=== PATIENT | female | born 1995 | race Caucasian/White ===

== ENCOUNTER 2016-07-04 21:45 | Observation (INO) | payer OTHER ==
[2016-07-04] MEDS ORDERED: SODIUM CHLORIDE 0.9% 1,000 ML IV STA (22:49)
[2016-07-04] MEDS ORDERED: ACETAMINOPHEN TAB 500 MG TAB PO STA (22:49)
--- NOTE | 2016-07-04 23:02 | ED ---
Abdominal Pain HPI <Ender Valles - Last Filed: 07/05/16 01:08> - General Source: patient, RN notes reviewed Mode of arrival: ambulatory Limitations: no limitations <Bee Michel - Last Filed: 07/05/16 01:17> - General Chief Complaint: Abdominal Pain Stated Complaint: ABD/BACK PAIN Time Seen by Provider: 07/04/16 22:40 - History of Present Illness Initial Comments: 21-year-old female presents to the emergency room chief complaint abdominal pain in . Patient states she is about 5 and half weeks . Patient states she started to have lower abdominal cramping. Patient denies any changes in urination. Patient IV nausea vomiting. Patient states the pain radiates to the back. Patient states she is . Patient denies any cough cold runny nose with this. Patient states she was concerned due to her continued symptoms that she thought that she should be evaluated. Patient denies any recent fever, chills, shortness of breath, chest pain, back pain, nausea vomiting, numbness or tingling, dysuria or hematuria, constipation or diarrhea, headaches or visual changes, or any other current symptoms. (Bee Michel) - Related Data Home Medications Medication Instructions Recorded Confirmed No Known Home Medications [No 07/04/16 07/04/16 Known Home Medications] Allergies Allergy/AdvReac Type Severity Reaction Status Date / Time No Known Allergies Allergy Verified 07/04/16 22:55 Review of Systems ROS Other: All systems not noted in ROS Statement are negative. <Ender Valles - Last Filed: 07/05/16 01:08> ROS Other: All systems not noted in ROS Statement are negative. <Bee Michel - Last Filed: 07/05/16 01:17> ROS Statement: Those systems with pertinent positive or pertinent negative responses have been documented in the HPI. Past Medical History Past Medical History: No Reported History History of Any Multi-Drug Resistant Organisms: None Reported Past Surgical History: No Surgical Hx Reported Past Psychological History: No Psychological Hx Reported Smoking Status: Current every day smoker Past Alcohol Use History: None Reported Past Drug Use History: None Reported <Bee Michel - Last Filed: 07/05/16 01:17> General Exam <Ender Valles - Last Filed: 07/05/16 01:08> Limitations: no limitations External exam: Present: normal external exam Speculum exam: Present: vaginal discharge (White) By manual exam: Present: adnexal tenderness (Right sided) <Bee Michel - Last Filed: 07/05/16 01:17> - General Exam Comments Initial Comments: General: The patient is awake and alert, in no distress, and does not appear acutely ill. Eye: Pupils are equal, round and reactive to light, extra-ocular movements are intact; there is normal conjunctiva bilaterally. No signs of icterus. Ears, nose, mouth and throat: There are moist mucous membranes. Neck: The neck is supple, there is no tenderness. Cardiovascular: There is a regular rate and rhythm. No murmur, rub or gallop is appreciated. Respiratory: Lungs are clear to auscultation, respirations are non-labored, breath sounds are equal. No wheezes, stridor, rales, or rhonchi. Gastrointestinal: Soft, non-distended, non-tender abdomen without masses or organomegaly noted. There is no rebound or guarding present. No CVA tenderness. Bowel sounds are unremarkable. Back: There is no tenderness to palpation in the midline. There is no obvious deformity. No rashes noted. Musculoskeletal: Normal ROM, no tenderness, There is no pedal edema. There is no calf tenderness or swelling. Sensation intact. Pulses equal bilaterally 2+. Neurological: CN II-XII intact, There are no obvious motor or sensory deficits. Coordination appears grossly intact. Speech is normal. Skin: Skin is warm and dry and no rashes or lesions are noted. Psychiatric: Cooperative, appropriate mood & affect, normal judgment. (Bee Michel) Medical Decision Making - Lab Data Result diagrams: 07/04/16 23:00 07/04/16 23:00 <Ender Valles - Last Filed: 07/05/16 01:08> - Lab Data Result diagrams: 07/04/16 23:00 07/04/16 23:00 - Radiology Data Radiology results: report reviewed, image reviewed <Bee Michel - Last Filed: 07/05/16 01:17> - Medical Decision Making Patient reevaluated by myself, Dr. Valles. Patient resting comfortably in bed however does have mild to moderate tenderness right lower abdomen/pelvic region. Patient is G3 SD 1. Patient believes she is around 5 and half weeks . Last miss a period was March 25. Case discussed in detail with Dr. Eng who will admit for observation. She recommends keeping patient nothing by mouth. She does want repeat CBC and beta hCG in the morning. Patient updated. Patient and Dr. Eng are both aware of concern for possible ectopic . (Ender Valles) 21-year-old female presents emergency Department chief complaint abdominal pain in . at this time the case is discussed with Dr. Eng. We will admit the patient for reevaluation in the morning. Patient and agree with the plan. All questions have been answered. Velasquez asked us to hold the Rhogam at this time. (Bee Michel) - Lab Data Lab Results 07/04/16 07/04/16 07/04/16 Range/Units 23:00 23:00 23:00 WBC 15.4 H (3.8-10.6) k/uL RBC 3.86 (3.80-5.40) m/uL Hgb 11.4 (11.4-16.0) gm/dL Hct 33.5 L (34.0-46.0) % MCV 86.8 (80.0-100.0) fL MCH 29.7 (25.0-35.0) pg MCHC 34.2 (31.0-37.0) g/dL RDW 12.4 (11.5-15.5) % Plt Count 248 (150-450) k/uL Neutrophils % 85 % Lymphocytes % 10 % Monocytes % 3 % Eosinophils % 1 % Basophils % 0 % Neutrophils # 13.2 H (1.3-7.7) k/uL Lymphocytes # 1.5 (1.0-4.8) k/uL Monocytes # 0.5 (0-1.0) k/uL Eosinophils # 0.1 (0-0.7) k/uL Basophils # 0.0 (0-0.2) k/uL Sodium (137-145) mmol/L Potassium (3.5-5.1) mmol/L Chloride (98-107) mmol/L Carbon Dioxide (22-30) mmol/L Anion Gap mmol/L BUN (7-17) mg/dL Creatinine (0.52-1.04) mg/dL Est GFR (MDRD) Af Amer (>60 ml/min/1.73 sqM) Est GFR (MDRD) Non-Af (>60 ml/min/1.73 sqM) Glucose (74-99) mg/dL Calcium (8.4-10.2) mg/dL Total Bilirubin (0.2-1.3) mg/dL AST (14-36) U/L ALT (9-52) U/L Alkaline Phosphatase (38-126) U/L Total Protein (6.3-8.2) g/dL Albumin (3.5-5.0) g/dL HCG, Quant mIU/mL Urine Color Yellow Urine Appearance Cloudy H (Clear) Urine pH 5.5 (5.0-8.0) Ur Specific Le[place]y 1.031 (1.001-1.035) Urine Protein 1+ H (Negative) Urine Glucose (UA) Negative (Negative) Urine Ketones Trace H (Negative) Urine Blood Negative (Negative) Urine Nitrite Negative (Negative) Urine Bilirubin Negative (Negative) Urine Urobilinogen 2.0 (<2.0) mg/dL Ur Leukocyte Esterase Moderate H (Negative) Urine RBC 4 (0-5) /hpf Urine WBC 4 (0-5) /hpf Ur Squamous Epith Cells 16 H (0-4) /hpf Urine Mucus Moderate H (None) /hpf Urine HCG, Qual (Not Detectd) Trichomonas Ag (Rapid) (Negative) Blood Type A Negative Blood Type Recheck No Antibody Screen Cancelled 07/04/16 07/04/16 07/04/16 Range/Units 23:00 23:00 23:00 WBC (3.8-10.6) k/uL RBC (3.80-5.40) m/uL Hgb (11.4-16.0) gm/dL Hct (34.0-46.0) % MCV (80.0-100.0) fL MCH (25.0-35.0) pg MCHC (31.0-37.0) g/dL RDW (11.5-15.5) % Plt Count (150-450) k/uL Neutrophils % % Lymphocytes % % Monocytes % % Eosinophils % % Basophils % % Neutrophils # (1.3-7.7) k/uL Lymphocytes # (1.0-4.8) k/uL Monocytes # (0-1.0) k/uL Eosinophils # (0-0.7) k/uL Basophils # (0-0.2) k/uL Sodium 140 (137-145) mmol/L Potassium 3.7 (3.5-5.1) mmol/L Chloride 105 (98-107) mmol/L Carbon Dioxide 23 (22-30) mmol/L Anion Gap 12 mmol/L BUN 13 (7-17) mg/dL Creatinine 0.70 (0.52-1.04) mg/dL Est GFR (MDRD) Af Amer >60 (>60 ml/min/1.73 sqM) Est GFR (MDRD) Non-Af >60 (>60 ml/min/1.73 sqM) Glucose 103 H (74-99) mg/dL Calcium 8.8 (8.4-10.2) mg/dL Total Bilirubin 0.6 (0.2-1.3) mg/dL AST 14 (14-36) U/L ALT 26 (9-52) U/L Alkaline Phosphatase 42 (38-126) U/L Total Protein 7.0 (6.3-8.2) g/dL Albumin 4.1 (3.5-5.0) g/dL HCG, Quant 5720.1 mIU/mL Urine Color Urine Appearance (Clear) Urine pH (5.0-8.0) Ur Specific Le[place]y (1.001-1.035) Urine Protein (Negative) Urine Glucose (UA) (Negative) Urine Ketones (Negative) Urine Blood (Negative) Urine Nitrite (Negative) Urine Bilirubin (Negative) Urine Urobilinogen (<2.0) mg/dL Ur Leukocyte Esterase (Negative) Urine RBC (0-5) /hpf Urine WBC (0-5) /hpf Ur Squamous Epith Cells (0-4) /hpf Urine Mucus (None) /hpf Urine HCG, Qual Detected (Not Detectd) Trichomonas Ag (Rapid) (Negative) Blood Type Blood Type Recheck Antibody Screen 07/05/16 Range/Units 00:30 WBC (3.8-10.6) k/uL RBC (3.80-5.40) m/uL Hgb (11.4-16.0) gm/dL Hct (34.0-46.0) % MCV (80.0-100.0) fL MCH (25.0-35.0) pg MCHC (31.0-37.0) g/dL RDW (11.5-15.5) % Plt Count (150-450) k/uL Neutrophils % % Lymphocytes % % Monocytes % % Eosinophils % % Basophils % % Neutrophils # (1.3-7.7) k/uL Lymphocytes # (1.0-4.8) k/uL Monocytes # (0-1.0) k/uL Eosinophils # (0-0.7) k/uL Basophils # (0-0.2) k/uL Sodium (137-145) mmol/L Potassium (3.5-5.1) mmol/L Chloride (98-107) mmol/L Carbon Dioxide (22-30) mmol/L Anion Gap mmol/L BUN (7-17) mg/dL Creatinine (0.52-1.04) mg/dL Est GFR (MDRD) Af Amer (>60 ml/min/1.73 sqM) Est GFR (MDRD) Non-Af (>60 ml/min/1.73 sqM) Glucose (74-99) mg/dL Calcium (8.4-10.2) mg/dL Total Bilirubin (0.2-1.3) mg/dL AST (14-36) U/L ALT (9-52) U/L Alkaline Phosphatase (38-126) U/L Total Protein (6.3-8.2) g/dL Albumin (3.5-5.0) g/dL HCG, Quant mIU/mL Urine Color Urine Appearance (Clear) Urine pH (5.0-8.0) Ur Specific [place]y (1.001-1.035) Urine Protein (Negative) Urine Glucose (UA) (Negative) Urine Ketones (Negative) Urine Blood (Negative) Urine Nitrite (Negative) Urine Bilirubin (Negative) Urine Urobilinogen (<2.0) mg/dL Ur Leukocyte Esterase (Negative) Urine RBC (0-5) /hpf Urine WBC (0-5) /hpf Ur Squamous Epith Cells (0-4) /hpf Urine Mucus (None) /hpf Urine HCG, Qual (Not Detectd) Trichomonas Ag (Rapid) Negative (Negative) Blood Type Blood Type Recheck Antibody Screen Disposition <Ender Valles - Last Filed: 07/05/16 01:08> Time of Disposition: :17 Decision Date: 07/05/16 Decision Time: :17 <Bee Michel - Last Filed: 07/05/16 01:17> Clinical Impression: Pelvic pain affecting Disposition: ADMITTED IP TO THIS HOSP Condition: Stable
[2016-07-04 23:27] LABS: Basophils % (A) 0 %; CH 29.8; CHCM 34.5; Eosinophils # (A) 0.1 k/uL (0-0.7); Eosinophils % (A) 1 %; HCT 33.5 % (34.0-46.0); HDW 2.43; HGB 11.4 gm/dL (11.4-16.0); Luc % (Auto) 1; Lymphocytes # (A) 1.5 k/uL (1.0-4.8); Lymphocytes % (A) 10 %; MCH 29.7 pg (25.0-35.0); MCHC 34.2 g/dL (31.0-37.0); MCV 86.8 fL (80.0-100.0); Mean Platelet Volume 7.7; Monocytes # (A) 0.5 k/uL (0-1.0); Monocytes % (A) 3 %; Neutrophils # (A) 13.2 k/uL (1.3-7.7); Neutrophils % (A) 85 %; RBC 3.86 m/uL (3.80-5.40); RDW 12.4 % (11.5-15.5); WBC 15.4 k/uL (3.8-10.6); WBC (Perox) 16.46
[2016-07-04 23:31] LABS: Appearance,Urine Cloudy (Clear); Bilirubin,Urine Negative (Negative); Glucose,Urine (UA) Negative (Negative); Ketones,Urine Trace (Negative); Leukocyte Esterase,Urine Moderate (Negative); Mucus,Urine Moderate /hpf; Nitrite,Urine Negative (Negative); PH, Urine 5.5 (5.0-8.0); Particle Count 13083; Protein,Urine 1+ (Negative); RBC,Urine 4 /hpf (0-5); Specific Gravity,Urine 1.031 (1.001-1.035); Squamous Epithelial Cell,Urine 16 /hpf (0-4); UA Billing (MACRO vs. MICRO) MICRO; WBC,Urine 4 /hpf (0-5)
[2016-07-04 23:41] LABS: ALT 26 U/L (9-52); AST 14 U/L (14-36); Alkaline Phosphatase 42 U/L (38-126); Anion Gap 12 mmol/L; Blood Urea Nitrogen 13 mg/dL (7-17); Calcium 8.8 mg/dL (8.4-10.2); Carbon Dioxide 23 mmol/L (22-30); Chloride 105 mmol/L (98-107); Glucose 103 mg/dL (74-99); Non-African American GFR(MDRD) >60 (>60 ml/min/1.73 sqM); Potassium 3.7 mmol/L (3.5-5.1); Sodium 140 mmol/L (137-145); Total Bilirubin 0.6 mg/dL (0.2-1.3)
--- NOTE | 2016-07-05 00:32 | US ---
ULTRASOUND OB/ENDOVAG INDICATION: 21-year-old woman, LMP 05/26/16, presenting with abdominal and back pain, no vaginal bleeding. HCG value are not available at time of report. COMPARISON: None available. TECHNIQUE: Real-time sonographic evaluation of the female pelvis obtained using grayscale and color flow. Both transvaginal and transabdominal techniques were employed. FINDINGS: The uterus measures 8.2 x 4.1 x 6.1 cm. The endometrial echo complex measures 10 mm. No intrauterine is visualized. There is moderate free pelvic fluid in the cul-de-sac and in the bilateral adnexal regions. The right ovary is not visualized. There is heterogeneous echogenic appearance in the right adnexal region extending inferior to the uterus with internal vascularity extending over a distance of 7-8 cm. The left ovary is suboptimally evaluated. A possible left ovary is visualized measuring 3.2 x 2.0 x 2.7 cm. IMPRESSION: 1. Moderate free pelvic fluid without visible intrauterine . 2. Nonvisualized right ovary with heterogeneous appearance of the right adnexal region demonstrating internal vascularity. 3. In the setting of positive test, this represents a of unknown location. Given heterogeneous appearance of the right adnexal region and moderate free pelvic fluid, the possibility of right-sided ectopic is raised. Correlation with serial quantitative hCG is recommended. Close clinical and imaging follow-up and/or [employer] PROFESSIONAL evaluation is recommended as clinically indicated.
[2016-07-05] MEDS ORDERED: Rhogam IMMUNE GLOBULIN 1,500 UNIT/1 ML IM ONE ×2 (00:44→11:59)
[2016-07-05] MEDS ORDERED: ACETAMINOPHEN TAB 325 MG TAB PO PRN (01:17)
[2016-07-05] MEDS ORDERED: NALOXONE 0.4 MG/ML 1 ML VIAL IV PRN (01:17)
[2016-07-05] MEDS ORDERED: SODIUM CHLORIDE 0.9% 1,000 ML IV SCH (01:30)
[2016-07-05 07:44] LABS: Basophils % (A) 0 %; CH 29.5; CHCM 35.3; Eosinophils % (A) 1 %; HCT 24.8 % (34.0-46.0); HDW 2.47; Luc # (Auto) 0.15; Luc % (Auto) 2; Lymphocytes # (A) 1.9 k/uL (1.0-4.8); Lymphocytes % (A) 26 %; MCH 29.6 pg (25.0-35.0); MCHC 35.3 g/dL (31.0-37.0); Mean Platelet Volume 7.4; Monocytes # (A) 0.4 k/uL (0-1.0); Monocytes % (A) 5 %; Neutrophils # (A) 4.7 k/uL (1.3-7.7); Neutrophils % (A) 66 %; RBC 2.95 m/uL (3.80-5.40); RDW 12.7 % (11.5-15.5); WBC 7.1 k/uL (3.8-10.6); WBC (Perox) 7.07
--- NOTE | 2016-07-05 07:55 | P.HPOB ---
History of Present Illness H&P Date: 07/05/16 Chief Complaint: Pelvic pain, This is a 21-year-old female 3 para 1011 with a last menstrual period of 05/26/2016, who presents to the ER complaining of severe pelvic pain that began yesterday morning. She states when she got up to get ready for work she started having some severe lower abdominal pain. She did push through and did go to work. It did improve while she was at work and then when she got home later that evening she began having severe pain again. This pain did cause her to vomit and feel hot and cold at the same time. She has been having some mild nausea but this is been going on for about a week anyway. She just found out she was on July 01. Since she has been in the hospital her pain is significantly improved. She states this morning she is having almost no pain. She is not taking anything for pain other than her Tylenol in the emergency room. Her pelvic ultrasound showed a uterus measuring approximately 8 cm with endometrial thickness of 10 mm. Right adnexa was not well defined but there was some vascularity noted in the area and a fairly moderate to large fluid collection in the pelvis measuring up to 7.8 cm extending from both adnexal regions. Left ovary appeared essentially normal. Her beta hCG level was 5720. Her blood type is Rh-. Obstetrical history: . History of 1 termination of . One vaginal delivery at term with no complications. Gynecologic history: She does have a history of chlamydia treated approximately 1 year ago. She denies any history of PID. Social history: She is single but has a steady boyfriend. She currently works at [employer]. Review of Systems Gastrointestinal: Reports abdominal pain (Lower), Reports nausea, Reports vomiting (Did have vomiting 2 times yesterday once in the morning and once in the evening 1 her pain was the worst.) Genitourinary: Reports pelvic pain (Lower abdomen, almost completely resolved this morning), Reports Past Medical History Past Medical History: No Reported History Additional Past Medical History / Comment(s): cellulitis History of Any Multi-Drug Resistant Organisms: None Reported Past Surgical History: No Surgical Hx Reported Past Anesthesia/Blood Transfusion Reactions: No Reported Reaction Past Psychological History: No Psychological Hx Reported Smoking Status: Current every day smoker (5-6 cigarettes a day.) Past Alcohol Use History: None Reported Past Drug Use History: None Reported Medications and Allergies Home Medications Medication Instructions Recorded Confirmed Type No Known Home Medications [No 07/04/16 07/04/16 History Known Home Medications] Allergies Allergy/AdvReac Type Severity Reaction Status Date / Time No Known Allergies Allergy Verified 07/04/16 22:55 Exam Osteopathic Statement: *. No significant issues noted on an osteopathic structural exam other than those noted in the History and Physical/Consult. - Vital Signs Vital signs: Vital Signs Temp Pulse Pulse Resp BP BP Pulse Ox 07/05/16 02:26 98.2 F 103 H 16 106/55 99 07/05/16 02:04 98.7 F 79 18 100/53 99 Intake and Output 07/04/16 07/05/16 07/05/16 22:59 06:59 14:59 Intake Total 350 Balance 350 Intake: Intake, IV Titration 350 Amount Sodium Chloride 0.9% 1, 350 000 ml @ 100 mls/hr IV . Q10H MERVIN Rx#:[id number] Other: Voiding Method Toilet # Voids 1 HEENT: Within normal limits Heart: Regular rate and rhythm Lungs: Clear to auscultation bilaterally Abdomen: Soft, nontender Pelvic exam: Uterus is mid to anteverted position with minimal tenderness and no adnexal masses or tenderness noted. No vaginal bleeding is noted. Extremities: Negative Homans Results Result Diagrams: 07/04/16 23:00 07/04/16 23:00 Assessment and Plan (1) Pelvic pain affecting Status: Acute Plan: Will admit for observation. Will await serial CBC and beta hCG levels. We'll repeat ultrasound again this morning due to the resolution of her pain. Will allow to eat at this time. We'll continue close observation.
[2016-07-05 07:58] LABS: HGB 8.7 gm/dL (11.4-16.0)
--- NOTE | 2016-07-05 09:25 | US ---
EXAMINATION TYPE: US OB <=14 wks transvag DATE OF EXAM: 07/05/2016 8:59 AM COMPARISON: Previous study dated 07/04/2016. CLINICAL HISTORY: Pelvic pain, possible ectopic, follow-up scan. patient was scanned last night and h as a large complex collection right adnexal region, possible ectopic . EXAM PERFORMED: Transabdominal EXAM MEASUREMENTS:. GESTATIONAL AGE / DATING Physician Established: not established Dates by LMP: (5 weeks/5 days) EDC: 03/02/2017 Dates by First Scan: no IUP seen Dates by Current Scan for: no IUP seen MATERNAL ANATOMY Uterus: 9.8 x 5.4 x 7.3 cm Right Ovary: no identified Left Ovary: 3.0 x 2.1 x 2.6 cm Post CDS / Adnexa: large complex collection right adnexal region with surrounding free fluid with tulio ris, collection measures 8.9 x 5.5 x 8.1 cm and has minimal blood flow. Presence of free fluid: surrounding adnexal mass and extending into left adnexal and cul de sac. GESTATION / SURVEY Date of LMP: 05/26/2016 Beta HcG (if available): 5800 last night patient's pain from last night has completely subsided. No IUP seen, endo measures 1.2 cm. Large comp tyrone mass with surrounding free fluid. Cannot rule out ectopic at this time. IMPRESSION: 1. NO INTRAUTERINE GESTATION IS IDENTIFIED. 2. LARGE COMPLEX MASS ADJACENT TO THE RIGHT ADNEXA. 3. FREE FLUID WITHIN THE PELVIS. 4. ALTHOUGH THIS MAY REPRESENT A OF UNKNOWN LOCATION, AN EXTRAUTERINE MOLAR WOULD ALSO HAVE TO BE CONSIDERED. SERIAL BETA HCGS AND SHORT-TERM FOLLOW-UP HIGHLY SUGGESTED.
[2016-07-05 09:48] VITALS: BP 95/56; PULSE 79; RESP 14; TEMP 98.9
--- NOTE | 2016-07-05 12:10 | P.PN ---
Progress Note - Text Patient is seen and examined again. She states she is still having no pain. She has normal appetite and has eaten her breakfast with no difficulty. Her hemoglobin did drop from 11.4 down to 8.7 from last night and this morning. Her ultrasound this morning still showed a large complex area within the right adnexa with fluid surrounding it. The whole area measured approximately 8.9 x 8.1 cm with fluid extending into the cul-de-sac and the left side also. There is minimal blood flow to this area. Uterine lining is now 1.2 cm which is slightly thicker than it was yesterday. Patient was counseled extensively on the fact that this still could be an ectopic even though her pain has subsided. She does state that she has a history of anemia and was anemic with her last . I did offer to observe her longer in the hospital and repeat blood work again in the morning, however she is anxious to go home. I have advised her that it would like to repeat her blood work with a CBC and beta hCG level in 2 days on . I will then see her in the office on Monday. However she is advised that if she starts having any increased pain, and dizziness or lightheadedness, or any other symptoms, she should call the office immediately or go right to the emergency room. She is still aware that this could be an ectopic and she does understand the risks of this.
== END 2016-07-05 14:40 | disposition home or self-care (01) ==
LOC: EC 21:45 → 3SUR 07-05 01:17
PROVIDERS: ADMIT Obstetrics & Gynecology; ATTEND Obstetrics & Gynecology
DX: R10.2 Pelvic and perineal pain (principal); F17.210 Nicotine dependence, cigarettes, uncomplicated; Z32.01 Encounter for pregnancy test, result positive
CPT/HCPCS: 96360 ×2; 96361 ×2; 99285 ×2; 36415; 86900; 86901; 80053; 87591; 87491; 85025 ×2; 86850; 81001; 81025; 84702; 87808; 87070; 87086; 76801 ×2; 76817 ×2; G0378; J2791; 87205

== ENCOUNTER → 2016-07-07 | Outpatient (CLI) | payer OTHER ==
[2016-07-07 11:31] LABS: CH 29.2; CHCM 33.5; HCT 26.3 % (34.0-46.0); HDW 2.51; HGB 9.1 gm/dL (11.4-16.0); MCH 30.5 pg (25.0-35.0); MCHC 34.8 g/dL (31.0-37.0); MCV 87.6 fL (80.0-100.0); Mean Platelet Volume 7.4; RDW 12.6 % (11.5-15.5)
== END | disposition home or self-care (01) ==
LOC: LABWHC1 10:33
PROVIDERS: ATTEND Obstetrics & Gynecology
DX: O26.899 Other specified pregnancy related conditions, unspecified trimester (principal); Z3A.00 Weeks of gestation of pregnancy not specified
CPT/HCPCS: 36415; 84702; 85027

== ENCOUNTER → 2016-07-15 | Outpatient (CLI) | payer OTHER ==
[2016-07-15 10:23] LABS: CH 29.5; HCT 28.2 % (34.0-46.0); HDW 3.05; Hypochromasia Slight; MCH 28.7 pg (25.0-35.0); MCHC 31.9 g/dL (31.0-37.0); MCV 90.1 fL (80.0-100.0); Mean Platelet Volume 6.8; RBC 3.13 m/uL (3.80-5.40); RDW 13.7 % (11.5-15.5); WBC 7.8 k/uL (3.8-10.6)
== END | disposition home or self-care (01) ==
LOC: LABWHC1 09:26
PROVIDERS: ATTEND Obstetrics & Gynecology
DX: O00.10 Tubal pregnancy without intrauterine pregnancy (principal)
CPT/HCPCS: 36415; 84702; 85027

== ENCOUNTER → 2016-08-22 | Outpatient (CLI) | payer OTHER ==
--- NOTE | 2016-08-22 13:42 | XR ---
EXAMINATION TYPE: XR spine complete AP and Lat DATE OF EXAM ORDERED: 08/22/2016 1:03 PM HISTORY: R52 pain. COMPARISON: Previous scoliosis survey dated 12/27/2005. FINDINGS: Lawanda projects over the tongue. There is a slight reversal of the normal cervical lordosis. Vertebral body height and alignment are m aintained. Atlantoaxial relationships are normal. There is no spondylolysis or spondylolisthesis. The re is no significant degenerative disc disease. The pedicles are intact. There is a mild dextroscolio sis in the lumbar region. IMPRESSION: 1. MILD LUMBAR DEXTROSCOLIOSIS. 2. NO SIGNIFICANT DEGENERATIVE CHANGE.
== END | disposition home or self-care (01) ==
LOC: RADXRMAIN 12:36
PROVIDERS: ATTEND Internal Medicine
DX: M41.86 Other forms of scoliosis, lumbar region (principal); R52 Pain, unspecified
CPT/HCPCS: 72082

== ENCOUNTER → 2018-01-02 | Outpatient (CLI) | payer OTHER | END | disposition home or self-care (01) | LOC: LABWHC1 13:23 | PROVIDERS: ATTEND Obstetrics & Gynecology | DX: Z34.81 Encounter for supervision of other normal pregnancy, first trimester (principal); Z3A.00 Weeks of gestation of pregnancy not specified | CPT/HCPCS: 36415; 84702 ==

== ENCOUNTER → 2018-01-04 | Outpatient (CLI) | payer OTHER | END | disposition home or self-care (01) | LOC: LABWHC1 07:54 | PROVIDERS: ATTEND Obstetrics & Gynecology | DX: Z34.81 Encounter for supervision of other normal pregnancy, first trimester (principal) | CPT/HCPCS: 36415; 84702 ==

== ENCOUNTER → 2018-01-05 | Outpatient (CLI) | payer OTHER | END | disposition home or self-care (01) | LOC: LABWHC1 14:32 | PROVIDERS: ATTEND Obstetrics & Gynecology | DX: Z34.80 Encounter for supervision of other normal pregnancy, unspecified trimester (principal) | CPT/HCPCS: 36415; 84702; 86850; 86900; 86901 ==

== ENCOUNTER → 2018-01-08 | Outpatient (CLI) | payer OTHER | LOC: LABWHC1 13:12 | PROVIDERS: ATTEND Obstetrics & Gynecology | DX: Z34.80 Encounter for supervision of other normal pregnancy, unspecified trimester (principal) | CPT/HCPCS: 36415; 84702 ==

== ENCOUNTER → 2018-01-09 | Outpatient (CLI) | payer OTHER ==
--- NOTE | 2018-01-10 07:30 | US ---
EXAMINATION TYPE: Transabdominal land TV for better endometrium assessment DATE OF EXAM: 07/04/17 COMPARISON: NONE CLINICAL HISTORY: R68.89 Other general symptoms and signs. Bleeding off and on 2 weeks EXAM PERFORMED: Transvaginal (TV) and Transabdominal (TA) EXAM MEASUREMENTS: GESTATIONAL AGE / DATING Physician Established: not established Dates by LMP: 11/15/2017 (7 weeks/6 days) EDC: 08/22/2018 Dates by First Scan: No previous this is first scan EDC: Dates by Current Scan : no yolk sac seen or pole MATERNAL ANATOMY Uterus: 9.6 x 4.7 x 4.0 cm Right Ovary: 3.3 x 1.8 x 2.7 cm Left Ovary: 2.2 x 1.5 x 2.6 cm Post CDS / Adnexa: wnl Presence of free fluid: yes cul de sac 2.8 cm GESTATION / SURVEY nabothian cyst cervical vs cystic debris 1.1 cm upper endometrium area 1.0 x 0.7 x 0.7 cm irregular fluid collection Date of LMP: 11/15/2017 Beta HcG (if available): 3267 done 01/08/2018 IMPRESSION: There is a very small irregularly marginated abnormal appearing intraendometrial fluid collection con cerning for pseudosac of ectopic or evolving spontaneous . Short-term serum beta hC G follow-up to establish trend and repeat pelvic ultrasound in 5 days is recommended as early intraut erine remains a less likely possibility.
== END | disposition home or self-care (01) ==
LOC: RADUSWWP 16:13
PROVIDERS: ATTEND Obstetrics & Gynecology
DX: O02.81 Inappropriate change in quantitative human chorionic gonadotropin (hCG) in early pregnancy (principal); Z3A.01 Less than 8 weeks gestation of pregnancy
CPT/HCPCS: 76801; 76817

== ENCOUNTER 2018-01-10 06:24 | Emergency (ER) | payer OTHER ==
[2018-01-10 06:32] VITALS: RESP 18
[2018-01-10] MEDS ORDERED: SODIUM CHLORIDE 0.9% 1,000 ML IV ONE (06:54)
[2018-01-10] MEDS ORDERED: ONDANSETRON 4 MG/2 ML VIAL IVP STA (06:54)
[2018-01-10 06:59] LABS: Basophils % (A) 1 %; Eosinophils # (A) 0.2 k/uL (0-0.7); Eosinophils % (A) 3 %; HCT 41.2 % (34.0-46.0); HGB 13.8 gm/dL (11.4-16.0); Lymphocytes # (A) 2.3 k/uL (1.0-4.8); Lymphocytes % (A) 28 %; MCH 28.7 pg (25.0-35.0); MCHC 33.4 g/dL (31.0-37.0); Mean Platelet Volume 6.8; Monocytes # (A) 0.3 k/uL (0-1.0); Monocytes % (A) 4 %; Neutrophils # (A) 5.1 k/uL (1.3-7.7); Neutrophils % (A) 63 %; Platelet Count 226 k/uL (150-450); RBC 4.79 m/uL (3.80-5.40); RDW 13.1 % (11.5-15.5); WBC 8.1 k/uL (3.8-10.6)
[2018-01-10 07:02] LABS: Appearance,Urine Clear (Clear); Bilirubin,Urine Negative (Negative); Blood,Urine Moderate (Negative); Color,Urine Yellow; Glucose,Urine (UA) Negative (Negative); Ketones,Urine Negative (Negative); Leukocyte Esterase,Urine Trace (Negative); Mucus,Urine Rare /hpf; Nitrite,Urine Negative (Negative); Protein,Urine Negative (Negative); RBC,Urine 1 /hpf (0-5); Squamous Epithelial Cell,Urine 2 /hpf (0-4); Urobilinogen,Urine <2.0 mg/dL (<2.0); WBC,Urine 3 /hpf (0-5)
[2018-01-10] MEDS ORDERED: MORPHINE SULFATE/PF 10MG/10ML VL IVP STA (07:02)
[2018-01-10] MEDS ORDERED: MORPHINE SULFATE 4 MG/ML SYRINGE IVP STA (07:02)
[2018-01-10] MEDS: MORPHINE SULFATE 4 MG/ML SYRINGE IM STA ×2 (07:07→07:09)
--- NOTE | 2018-01-10 07:10 | ED ---
General Adult HPI - General Source: patient Mode of arrival: wheelchair Limitations: no limitations <Marie Roth - Last Filed: 01/10/18 07:40> <Smooth Young - Last Filed: 01/10/18 09:23> - General Chief complaint: Back Pain/Injury Stated complaint: BACK PAIN <20 WKS Time Seen by Provider: 01/10/18 06:40 - History of Present Illness Initial comments: Suzy is a with a history of one elective termination age of 15, a subsequent right-sided ectopic requiring surgical intervention, 1 live and she is currently last menstrual period was mid November. She has been experiencing some mild dark vaginal bleeding for approximately one week and has been following with her OB. Her beta hCG was not increasing as expected and 18 ultrasound was ordered yesterday evening. Patient had a completed but has not gotten any results. Patient reports she woke suddenly this morning with a stabbing left lower quadrant suprapubic abdominal pain. Patient reports this pain is very similar to previous up ectopic . Pain is associated with nausea and nonbloody nonbilious emesis. Patient continues to have dark vaginal bleeding, she did pass small clot this morning. She's having no dysuria, obvious hematuria or urinary frequency. She has no history of kidney stones. (Marie Roth) - Related Data Home Medications Medication Instructions Recorded Confirmed No Known Home Medications 01/10/18 01/10/18 Allergies Allergy/AdvReac Type Severity Reaction Status Date / Time No Known Allergies Allergy Verified 01/10/18 06:55 Review of Systems ROS Other: All systems not noted in ROS Statement are negative. <Marie Roth - Last Filed: 01/10/18 07:40> ROS Other: All systems not noted in ROS Statement are negative. <Smooth Young - Last Filed: 01/10/18 09:23> ROS Statement: Those systems with pertinent positive or pertinent negative responses have been documented in the HPI. Past Medical History Past Medical History: No Reported History Additional Past Medical History / Comment(s): cellulitis of face, tubal History of Any Multi-Drug Resistant Organisms: None Reported Additional Past Surgical History / Comment(s): tubal removal Past Anesthesia/Blood Transfusion Reactions: No Reported Reaction Past Psychological History: No Psychological Hx Reported Smoking Status: Current every day smoker Past Alcohol Use History: None Reported Past Drug Use History: None Reported - Past Family History Daughter(s) Family Medical History: Seizure Disorder <Marie Roth - Last Filed: 01/10/18 07:40> General Exam Limitations: no limitations <Marie Roth - Last Filed: 01/10/18 07:40> <Smooth Young - Last Filed: 01/10/18 09:23> - General Exam Comments Initial Comments: GENERAL: Patient is mildly distressed appears quite uncomfortable, she is pale and vomiting HENT: Normocephalic, Atraumatic. EYES: PERRL PULMONARY: Tachypneic but clear respirations CARDIOVASCULAR: There is a regular rate and rhythm without any murmurs gallops or rubs. ABDOMEN: Mild tenderness to palpation of suprapubic area SKIN: Skin is clear with no lesions or rashes and otherwise unremarkable. NEUROLOGIC: Patient is alert and oriented x3. Cranial nerves II through XII are grossly intact. Motor and sensory are also intact. Normal speech, volume and content. Symmetrical smile. MUSCULOSKELETAL: Normal extremities with adequate strength and full range of motion. No lower extremity swelling or edema. No calf tenderness. : Normal external vagina Dark blood in the vaginal vault Cervix is closed, noted to have some coastal changes on the cervix recommend follow-up with OB for evaluation of possible HPV Cannot palpate ovaries bilaterally LYMPHATICS: No significant lymphadenopathy is noted PSYCHIATRIC: Normal psychiatric evaluation. Limitations: no limitations (Marie Roth) Course <Marie Roth - Last Filed: 01/10/18 07:40> <Smooth Young - Last Filed: 01/10/18 09:23> Vital Signs 01/10/18 06:28 Temperature 98.1 F Pulse Rate 69 Respiratory 18 Rate Blood Pressure 133/83 O2 Sat by Pulse 98 Oximetry - Reevaluation(s) Reevaluation #1: Patient was reevaluated, complete resolution of pain after morphine and remains hemodynamically stable. Updated on plan. 01/10/18 07:40 (Marie Roth) Medical Decision Making - Lab Data Result diagrams: 01/10/18 06:49 01/10/18 06:49 <Marie Roth - Last Filed: 01/10/18 07:40> - Lab Data Result diagrams: 01/10/18 06:49 01/10/18 06:49 <Smooth Young - Last Filed: 01/10/18 09:23> - Medical Decision Making The patient was seen and evaluated, history is obtained from the patient and review of medical record Patient had a serum beta hCG of 3400 yesterday, ultrasound was performed Pelvic exam reveals dark blood in the vaginal vault, closed cervical os, some discomfort with the exam No flank pain Patient's pain resolved with IV morphine Labs reveal stable hemoglobin Patient is hemodynamically stable Patient care was discussed with Dr. Eng. She was able to review the ultrasound findings. She states that considering the ultrasound was inconclusive for possible ectopic versus spontaneous miscarriage and the patient developed worsening pain today she would agree with plan for repeat ultrasound. In addition I did order an ultrasound of the left kidney to evaluate for any possible hydronephrosis or evidence of a kidney stone. Patient care was signed out to Dr. Young who will follow-up on the patient' s beta-hCG, repeat ultrasound findings and will discussed patient care with Dr. Eng. was updated on the plan for repeat ultrasound, kidney ultrasound, pending labs and Dr. Avila to follow-up. (Marie Roth) Patient's care is signed out at shift change awaiting beta hCG and ultrasound report. Beta hCG is down trending, 2900. Patient reevaluated, she has no abdominal tenderness, abdomen is soft no rebound or guarding. She's had no vaginal bleeding while emergency department. Ultrasound results are consistent with ectopic . There is a 5.5 cm left adnexal mass. There is some free fluid in the pelvis. Patient's hemoglobin is stable, her vital signs are stable. Beta hCG and ultrasound findings are discussed with the patient's OB doctor Velasquez. Patient has previous ectopic in the right adnexa. Given the stable vitals, stable hemoglobin, it is recommended that the patient received methotrexate 50 mg/m. She does receive this dose in the emergency department. She will follow-up with OB in the next 24 hours. She will return to the emergency department with any worsening abdominal pain, or concerning symptoms. This is discussed at length with patient and her . (Smooth Young) - Lab Data Lab Results 01/10/18 01/10/18 01/10/18 Range/Units 06:33 06:49 06:49 WBC 8.1 (3.8-10.6) k/uL RBC 4.79 (3.80-5.40) m/uL Hgb 13.8 (11.4-16.0) gm/dL Hct 41.2 (34.0-46.0) % MCV 86.0 (80.0-100.0) fL MCH 28.7 (25.0-35.0) pg MCHC 33.4 (31.0-37.0) g/dL RDW 13.1 (11.5-15.5) % Plt Count 226 (150-450) k/uL Neutrophils % 63 % Lymphocytes % 28 % Monocytes % 4 % Eosinophils % 3 % Basophils % 1 % Neutrophils # 5.1 (1.3-7.7) k/uL Lymphocytes # 2.3 (1.0-4.8) k/uL Monocytes # 0.3 (0-1.0) k/uL Eosinophils # 0.2 (0-0.7) k/uL Basophils # 0.0 (0-0.2) k/uL Sodium (137-145) mmol/L Potassium (3.5-5.1) mmol/L Chloride (98-107) mmol/L Carbon Dioxide (22-30) mmol/L Anion Gap mmol/L BUN (7-17) mg/dL Creatinine (0.52-1.04) mg/dL Est GFR (CKD-EPI)AfAm (>60 ml/min/1.73 sqM) Est GFR (CKD-EPI)NonAf (>60 ml/min/1.73 sqM) Glucose (74-99) mg/dL Calcium (8.4-10.2) mg/dL Total Bilirubin (0.2-1.3) mg/dL AST (14-36) U/L ALT (9-52) U/L Alkaline Phosphatase (38-126) U/L Total Protein (6.3-8.2) g/dL Albumin (3.5-5.0) g/dL HCG, Qual HCG, Quant mIU/mL Urine Color Yellow Urine Appearance Clear (Clear) Urine pH 5.0 (5.0-8.0) Ur Specific Stanton 1.020 (1.001-1.035) Urine Protein Negative (Negative) Urine Glucose (UA) Negative (Negative) Urine Ketones Negative (Negative) Urine Blood Moderate H (Negative) Urine Nitrite Negative (Negative) Urine Bilirubin Negative (Negative) Urine Urobilinogen <2.0 (<2.0) mg/dL Ur Leukocyte Esterase Trace H (Negative) Urine RBC 1 (0-5) /hpf Urine WBC 3 (0-5) /hpf Ur Squamous Epith Cells 2 (0-4) /hpf Urine Mucus Rare H (None) /hpf Blood Type A Negative Blood Type Recheck No Antibody Screen POSITIVE Antibody Identification Anti-D Direct Antiglob Test Negative Spec Expiration Date 01/13/2018234801/10/18 01/10/18 Range/Units 06:49 06:49 WBC (3.8-10.6) k/uL RBC (3.80-5.40) m/uL Hgb (11.4-16.0) gm/dL Hct (34.0-46.0) % MCV (80.0-100.0) fL MCH (25.0-35.0) pg MCHC (31.0-37.0) g/dL RDW (11.5-15.5) % Plt Count (150-450) k/uL Neutrophils % % Lymphocytes % % Monocytes % % Eosinophils % % Basophils % % Neutrophils # (1.3-7.7) k/uL Lymphocytes # (1.0-4.8) k/uL Monocytes # (0-1.0) k/uL Eosinophils # (0-0.7) k/uL Basophils # (0-0.2) k/uL Sodium 142 (137-145) mmol/L Potassium 4.4 (3.5-5.1) mmol/L Chloride 109 H (98-107) mmol/L Carbon Dioxide 20 L (22-30) mmol/L Anion Gap 13 mmol/L BUN 11 (7-17) mg/dL Creatinine 0.68 (0.52-1.04) mg/dL Est GFR (CKD-EPI)AfAm >90 (>60 ml/min/1.73 sqM) Est GFR (CKD-EPI)NonAf >90 (>60 ml/min/1.73 sqM) Glucose 110 H (74-99) mg/dL Calcium 9.5 (8.4-10.2) mg/dL Total Bilirubin 0.6 (0.2-1.3) mg/dL AST 23 (14-36) U/L ALT 24 (9-52) U/L Alkaline Phosphatase 38 (38-126) U/L Total Protein 7.4 (6.3-8.2) g/dL Albumin 4.3 (3.5-5.0) g/dL HCG, Qual Detected HCG, Quant 2959.5 mIU/mL Urine Color Urine Appearance (Clear) Urine pH (5.0-8.0) Ur Specific Stanton (1.001-1.035) Urine Protein (Negative) Urine Glucose (UA) (Negative) Urine Ketones (Negative) Urine Blood (Negative) Urine Nitrite (Negative) Urine Bilirubin (Negative) Urine Urobilinogen (<2.0) mg/dL Ur Leukocyte Esterase (Negative) Urine RBC (0-5) /hpf Urine WBC (0-5) /hpf Ur Squamous Epith Cells (0-4) /hpf Urine Mucus (None) /hpf Blood Type Blood Type Recheck Antibody Screen Antibody Identification Direct Antiglob Test Spec Expiration Date Disposition <Marie Roth P - Last Filed: 01/10/18 07:40> Is patient prescribed a controlled substance at d/c from ED?: No Time of Disposition: 09:23 <Smooth Young - Last Filed: 01/10/18 09:23> Clinical Impression: Ectopic Disposition: HOME SELF-CARE Condition: Fair Instructions: Ectopic (DC) Additional Instructions: Please follow up with Dr. Eng in the next 24 hours. Please return immediately with any worsening or changing symptoms. Referrals: None,Stated [Primary Care Provider] - 1-2 days Brenda Eng DO [Doctor of Osteopathic Medicine] - 1-2 days
[2018-01-10 07:13] LABS: ALT 24 U/L (9-52); AST 23 U/L (14-36); Albumin 4.3 g/dL (3.5-5.0); Alkaline Phosphatase 38 U/L (38-126); Anion Gap 13 mmol/L; Blood Urea Nitrogen 11 mg/dL (7-17); Calcium 9.5 mg/dL (8.4-10.2); Carbon Dioxide 20 mmol/L (22-30); Chloride 109 mmol/L (98-107); Glucose 110 mg/dL (74-99); Potassium 4.4 mmol/L (3.5-5.1); Sodium 142 mmol/L (137-145); Total Bilirubin 0.6 mg/dL (0.2-1.3); Total Protein 7.4 g/dL (6.3-8.2)
[2018-01-10 07:14] LABS: HCG,Qualitative Serum Detected
[2018-01-10] MEDS ORDERED: Rhogam IMMUNE GLOBULIN 1,500 UNIT/1 ML IM ONE (07:39)
--- NOTE | 2018-01-10 08:52 | US ---
EXAMINATION TYPE: US kidneys/renal and bladder DATE OF EXAM: 01/10/2018 COMPARISON: NONE CLINICAL HISTORY: left back pain. Back pain and nausea x 1 day, hematuria, patient is , unsur e of how far along she is. EXAM MEASUREMENTS: Right Kidney: 11.5 x 3.9 x 4.4 cm Left Kidney: 11.3 x 4.7 x 5.2 cm Right Kidney: no hydronephrosis or masses seen. Cortical medullary differentiation is maintained. Left Kidney: no hydronephrosis or masses seen Cortical medullary differentiation is maintained. Bladder: wnl Bilateral Jets seen: yes There is no evidence for hydronephrosis at this point in time. No nephrolithiasis is seen. No rakesh s are identified. The urinary bladder is anechoic. Bilateral ureteral jets are seen. IMPRESSION: No hydronephrosis or nephrolithiasis.
--- NOTE | 2018-01-10 08:59 | US ---
EXAMINATION TYPE: Transabdominal DATE OF EXAM: 07/04/17 COMPARISON: US 01-09-18 CLINICAL HISTORY: Pain concern for left ectopic - no right ovary. Back pain and nausea x 1 day, spott ing, patient unsure of exact LMP, 4, para 1, 1, ectopic 1, history of ectopic, right fallopian tube removed, Beta HCG done 01-08-18 3,267. EXAM PERFORMED: Transvaginal (TV) and Transabdominal (TA) EXAM MEASUREMENTS: GESTATIONAL AGE / DATING Physician Established: Not established yet Dates by LMP: Unknown Dates by First Scan: No IUP seen at this time Dates by Current Scan for: No IUP seen at this time MATERNAL ANATOMY Uterus: 8.5 x 5.1 x 6.3cm, anteverted, multiple nabothian cysts Endometrium: 0.9cm Right Ovary: 3.8 x 1.8 x 2.8cm Left Ovary: 2.5 x 2.1 x 2.3cm Post CDS / Adnexa: free fluid in posterior cul de sac and right adnexa, left adnexa: 5.5 x 3.8 x 4.8c m vascular mass, possible ectopic Presence of free fluid: yes Presence of corpus luteal cyst: not seen Presence of subchorionic bleed: no GESTATION / SURVEY IUP: No IUP seen at this time Date of LMP: Patient unsure Beta HcG (if available): 2,959.5 today, 3,267 done on 01/08/18 No IUP seen at this time, 5.5cm vascular mass seen within left adnexa, possible ectopic, free fluid s een within posterior cul de sac and right adnexa. IMPRESSION: Findings suspicious for left ectopic with complex adnexal free fluid and no intrauterine pr egnancy identified. Findings communicating with the ordering ER physician at 8:56 AM on 01/10/2018.
[2018-01-10] MEDS ORDERED: METHOTREXATE SODIUM (PF) 25 MG/ML 2 ML VIAL IM ONE (09:30)
[2018-01-10 10:05] VITALS: BP 112/57; PULSE 68; TEMP 98.3
== END 2018-01-10 10:07 | disposition home or self-care (01) ==
LOC: EC 06:24
DX: O00.90 Unspecified ectopic pregnancy without intrauterine pregnancy (principal); F17.200 Nicotine dependence, unspecified, uncomplicated; Z3A.00 Weeks of gestation of pregnancy not specified
CPT/HCPCS: 36415; 86900; 86901; 80053; 85025; 86850; 86870; 86880; 81001; 84703; 84702; 87086; 76801; 76817; 76770; 99284; 96374; 96375; 96361; 96372; J2270; J9260; J2405

== ENCOUNTER → 2018-01-15 | Outpatient (CLI) | payer OTHER | LOC: LABWHC1 14:19 | PROVIDERS: ATTEND Obstetrics & Gynecology | DX: O00.90 Unspecified ectopic pregnancy without intrauterine pregnancy (principal); Z3A.00 Weeks of gestation of pregnancy not specified | CPT/HCPCS: 36415; 84702 ==

== ENCOUNTER → 2018-01-18 | Outpatient (CLI) | payer OTHER | END | disposition home or self-care (01) | LOC: LABWHC1 13:26 | PROVIDERS: ATTEND Obstetrics & Gynecology | DX: O00.90 Unspecified ectopic pregnancy without intrauterine pregnancy (principal); Z3A.00 Weeks of gestation of pregnancy not specified | CPT/HCPCS: 36415; 84702 ==

== ENCOUNTER → 2018-01-24 | Outpatient (CLI) | payer OTHER | END | disposition home or self-care (01) | LOC: LABWHC1 13:07 | PROVIDERS: ATTEND Obstetrics & Gynecology | DX: O00.90 Unspecified ectopic pregnancy without intrauterine pregnancy (principal) | CPT/HCPCS: 36415; 84702 ==

== ENCOUNTER 2018-01-30 22:38 | Inpatient (IN) | payer OTHER ==
[2018-01-30] MEDS ORDERED: ONDANSETRON 4 MG/2 ML VIAL IVP STA (23:22)
[2018-01-30] MEDS ORDERED: MORPHINE SULFATE 4 MG/ML SYRINGE IV STA (23:22)
[2018-01-30] MEDS ORDERED: SODIUM CHLORIDE 0.9% 1,000 ML IV ONE (23:22)
--- NOTE | 2018-01-30 23:45 | ED ---
General Adult HPI - General Source: patient, RN notes reviewed, old records reviewed Mode of arrival: ambulatory Limitations: no limitations <Karla Oreilly - Last Filed: 01/31/18 00:43> <Marie Roth - Last Filed: 01/31/18 03:16> - General Chief complaint: Back Pain/Injury Stated complaint: Back pain Time Seen by Provider: 01/30/18 23:02 - History of Present Illness Initial comments: Patient is a G4, P1021 with history today of left-sided abdominal pain and increased vaginal bleeding. Patient reports she's had vaginal bleeding for the past 3 weeks since diagnosis of her ectopic . She was treated with methotrexate on 01/10. Patient reports that she has been following with her OB/ [facility] and has been trending her beta hCG. Patient is already recieved RhoGAM at Dr. Eng's office. Patient reports that she is having some associated left- sided back pain today. She denies any dysuria or hematuria or urinary frequency.Patient denies any recent fever, chills, shortness of breath, chest pain, back pain, abdominal pain, nausea vomiting, numbness or tingling, dysuria or hematuria, constipation or diarrhea, headaches or visual changes, or any other current symptoms (Karla Oreilly) - Related Data Home Medications Medication Instructions Recorded Confirmed No Known Home Medications 01/10/18 01/31/18 Allergies Allergy/AdvReac Type Severity Reaction Status Date / Time No Known Allergies Allergy Verified 01/31/18 01:36 Review of Systems ROS Other: All systems not noted in ROS Statement are negative. <Karla Oreilly - Last Filed: 01/31/18 00:43> ROS Other: All systems not noted in ROS Statement are negative. <Marie Roth - Last Filed: 01/31/18 03:16> ROS Statement: Those systems with pertinent positive or pertinent negative responses have been documented in the HPI. Past Medical History Past Medical History: No Reported History Additional Past Medical History / Comment(s): cellulitis of face, tubal History of Any Multi-Drug Resistant Organisms: None Reported Past Surgical History: No Surgical Hx Reported Additional Past Surgical History / Comment(s): tubal removal Past Anesthesia/Blood Transfusion Reactions: No Reported Reaction Past Psychological History: No Psychological Hx Reported Smoking Status: Current every day smoker Past Alcohol Use History: None Reported Past Drug Use History: None Reported - Past Family History Daughter(s) Family Medical History: Seizure Disorder <Karla Oreilly - Last Filed: 01/31/18 00:43> General Exam Limitations: no limitations General appearance: alert, in no apparent distress Head exam: Present: atraumatic, normocephalic, normal inspection Eye exam: Present: normal appearance, PERRL, EOMI. Absent: scleral icterus, conjunctival injection, periorbital swelling ENT exam: Present: normal exam Neck exam: Present: normal inspection. Absent: tenderness, meningismus, lymphadenopathy Respiratory exam: Present: normal lung sounds bilaterally. Absent: respiratory distress, wheezes, rales, rhonchi, stridor Cardiovascular Exam: Present: regular rate, normal rhythm, normal heart sounds. Absent: systolic murmur, diastolic murmur, rubs, gallop, clicks GI/Abdominal exam: Present: soft, tenderness (Left lower quadrant tenderness, guarding ), guarding, normal bowel sounds. Absent: distended, rebound, rigid External exam: Present: normal external exam Speculum exam: Present: vaginal bleeding. Absent: normal speculum exam By manual exam: Present: adnexal tenderness (Left adnexal tenderness). Absent: normal by manual exam, adnexal mass Extremities exam: Present: normal inspection, full ROM, normal capillary refill. Absent: tenderness, pedal edema, joint swelling, calf tenderness Back exam: Present: normal inspection, full ROM Neurological exam: Present: alert, oriented X3, CN II-XII intact Psychiatric exam: Present: normal affect, normal mood Skin exam: Present: warm, dry, intact, normal color. Absent: rash <Karla Oreilly - Last Filed: 01/31/18 00:43> <Marie Roth - Last Filed: 01/31/18 03:16> - General Exam Comments Initial Comments: Well-nourished, alert 22-year-old female. Patient appears in moderate discomfort. (Karla Oreilly) Vital Signs 01/30/18 01/31/18 22:40 00:50 Temperature 98 F Pulse Rate 81 63 Respiratory 28 H 18 Rate Blood Pressure 126/68 118/80 O2 Sat by Pulse 99 99 Oximetry Medical Decision Making - Lab Data Result diagrams: 01/30/18 23:15 01/30/18 23:15 <Karla Oreilly - Last Filed: 01/31/18 00:43> - Lab Data Result diagrams: 01/30/18 23:15 01/30/18 23:15 <Marie Roth - Last Filed: 01/31/18 03:16> - Medical Decision Making Patient is a 22-year-old female who presents emergency department today with increased left-sided lower abdominal pain and back pain. She has been following her hCG levels for the past few weeks with Dr. Eng after being diagnosed with ectopic treated with methotrexate. Patient's hCG level today is 850. Her previous hCG level I week ago was 847. She does have heavy vaginal bleeding on exam. She does have some left adnexal tenderness. Patient was 30 treated with RhoGAM by Dr. Eng. We discussed the case with Dr. Keene who recommends admission to Dr. West. He requests no further pain medication at this time. Patient will be remaining nothing by mouth. (Karla Oreilly) I personally saw and examined the patient. I reviewed and agree with the mid- level provider findings including all diagnostic interpretations and treatment plans as written unless otherwise stated. I was present for sanders portions of any procedures performed. The patient was seen and evaluated, history is obtained from the patient and review of medical records. Labs were reviewed and revealed a 3 g hemoglobin drop and an increasing beta hCG despite the patient having been treated with Methotrexate. An ultrasound was ordered and patient care was discussed with Dr. Keene who recommended the patient be admitted to Dr. Eng for further evaluation. Dr. Rutherford will see the patient on the floor this morning. At the time of admission the ultrasound results were not available. (Marie Roth) - Lab Data Lab Results 01/30/18 01/30/18 01/30/18 Range/Units 23:15 23:15 23:15 WBC 7.3 (3.8-10.6) k/uL RBC 3.57 L (3.80-5.40) m/uL Hgb 10.5 L D (11.4-16.0) gm/dL Hct 31.5 L (34.0-46.0) % MCV 88.2 (80.0-100.0) fL MCH 29.5 (25.0-35.0) pg MCHC 33.5 (31.0-37.0) g/dL RDW 13.2 (11.5-15.5) % Plt Count 263 (150-450) k/uL Neutrophils % 65 % Lymphocytes % 25 % Monocytes % 5 % Eosinophils % 3 % Basophils % 1 % Neutrophils # 4.8 (1.3-7.7) k/uL Lymphocytes # 1.9 (1.0-4.8) k/uL Monocytes # 0.4 (0-1.0) k/uL Eosinophils # 0.2 (0-0.7) k/uL Basophils # 0.1 (0-0.2) k/uL PT 10.7 (9.0-12.0) sec INR 1.1 (<1.2) APTT 29.4 (22.0-30.0) sec Sodium 139 (137-145) mmol/L Potassium 3.5 (3.5-5.1) mmol/L Chloride 106 (98-107) mmol/L Carbon Dioxide 25 (22-30) mmol/L Anion Gap 8 mmol/L BUN 12 (7-17) mg/dL Creatinine 0.67 (0.52-1.04) mg/dL Est GFR (CKD-EPI)AfAm >90 (>60 ml/min/1.73 sqM) Est GFR (CKD-EPI)NonAf >90 (>60 ml/min/1.73 sqM) Glucose 106 H (74-99) mg/dL Calcium 8.9 (8.4-10.2) mg/dL Total Bilirubin 0.7 (0.2-1.3) mg/dL AST 17 (14-36) U/L ALT 22 (9-52) U/L Alkaline Phosphatase 55 (38-126) U/L Total Protein 6.5 (6.3-8.2) g/dL Albumin 3.8 (3.5-5.0) g/dL HCG, Quant 850.0 mIU/mL Blood Type Blood Type Recheck Antibody Screen Antibody Identification Direct Antiglob Test Spec Expiration Date 01/30/18 Range/Units 23:15 WBC (3.8-10.6) k/uL RBC (3.80-5.40) m/uL Hgb (11.4-16.0) gm/dL Hct (34.0-46.0) % MCV (80.0-100.0) fL MCH (25.0-35.0) pg MCHC (31.0-37.0) g/dL RDW (11.5-15.5) % Plt Count (150-450) k/uL Neutrophils % % Lymphocytes % % Monocytes % % Eosinophils % % Basophils % % Neutrophils # (1.3-7.7) k/uL Lymphocytes # (1.0-4.8) k/uL Monocytes # (0-1.0) k/uL Eosinophils # (0-0.7) k/uL Basophils # (0-0.2) k/uL PT (9.0-12.0) sec INR (<1.2) APTT (22.0-30.0) sec Sodium (137-145) mmol/L Potassium (3.5-5.1) mmol/L Chloride (98-107) mmol/L Carbon Dioxide (22-30) mmol/L Anion Gap mmol/L BUN (7-17) mg/dL Creatinine (0.52-1.04) mg/dL Est GFR (CKD-EPI)AfAm (>60 ml/min/1.73 sqM) Est GFR (CKD-EPI)NonAf (>60 ml/min/1.73 sqM) Glucose (74-99) mg/dL Calcium (8.4-10.2) mg/dL Total Bilirubin (0.2-1.3) mg/dL AST (14-36) U/L ALT (9-52) U/L Alkaline Phosphatase (38-126) U/L Total Protein (6.3-8.2) g/dL Albumin (3.5-5.0) g/dL HCG, Quant mIU/mL Blood Type A Negative Blood Type Recheck No Antibody Screen POSITIVE Antibody Identification Anti-D Direct Antiglob Test Negative Spec Expiration Date 02/02/20182 Disposition Is patient prescribed a controlled substance at d/c from ED?: No Time of Disposition: 00:45 <Karla Oreilly - Last Filed: 01/31/18 00:43> <Marie Roth - Last Filed: 01/31/18 03:16> Clinical Impression: Ectopic , Left sided abdominal pain Disposition: ADMITTED IP TO THIS HOSP Condition: Stable
[2018-01-30 23:46] LABS: ALT 22 U/L (9-52); AST 17 U/L (14-36); Albumin 3.8 g/dL (3.5-5.0); Alkaline Phosphatase 55 U/L (38-126); Anion Gap 8 mmol/L; Blood Urea Nitrogen 12 mg/dL (7-17); Calcium 8.9 mg/dL (8.4-10.2); Carbon Dioxide 25 mmol/L (22-30); Chloride 106 mmol/L (98-107); Glucose 106 mg/dL (74-99); Potassium 3.5 mmol/L (3.5-5.1); Sodium 139 mmol/L (137-145); Total Bilirubin 0.7 mg/dL (0.2-1.3); Total Protein 6.5 g/dL (6.3-8.2)
[2018-01-30 23:50] LABS: INR 1.1 (<1.2); Partial Thromboplastin Time 29.4 sec (22.0-30.0); Prothrombin Time 10.7 sec (9.0-12.0)
[2018-01-31 00:04] LABS: Basophils # (A) 0.1 k/uL (0-0.2); Basophils % (A) 1 %; Eosinophils # (A) 0.2 k/uL (0-0.7); Eosinophils % (A) 3 %; HCT 31.5 % (34.0-46.0); Lymphocytes # (A) 1.9 k/uL (1.0-4.8); Lymphocytes % (A) 25 %; MCH 29.5 pg (25.0-35.0); MCHC 33.5 g/dL (31.0-37.0); MCV 88.2 fL (80.0-100.0); Monocytes # (A) 0.4 k/uL (0-1.0); Monocytes % (A) 5 %; Neutrophils # (A) 4.8 k/uL (1.3-7.7); Neutrophils % (A) 65 %; Platelet Count 263 k/uL (150-450); RBC 3.57 m/uL (3.80-5.40); RDW 13.2 % (11.5-15.5); WBC 7.3 k/uL (3.8-10.6)
[2018-01-31 00:15] LABS: HGB 10.5 gm/dL (11.4-16.0)
[2018-01-31] MEDS ORDERED: ACETAMINOPHEN TAB 325 MG TAB PO PRN (00:45)
[2018-01-31] MEDS ORDERED: NALOXONE 0.4 MG/ML 1 ML VIAL IV PRN ×2 (00:45→13:10)
[2018-01-31] MEDS: SODIUM CHLORIDE 0.9% 1,000 ML IV SCH ×2 (00:56→15:28)
[2018-01-31 01:02] LABS: Appearance,Urine Clear (Clear); Bacteria,Urine Rare /hpf; Bilirubin,Urine Negative (Negative); Blood,Urine Large (Negative); Color,Urine Yellow; Glucose,Urine (UA) Negative (Negative); Ketones,Urine Trace (Negative); Leukocyte Esterase,Urine Negative (Negative); Mucus,Urine Moderate /hpf; Nitrite,Urine Negative (Negative); PH, Urine 6.5 (5.0-8.0); Protein,Urine 1+ (Negative); RBC,Urine 169 /hpf (0-5); Specific Gravity,Urine 1.029 (1.001-1.035); Squamous Epithelial Cell,Urine 2 /hpf (0-4); WBC,Urine 5 /hpf (0-5)
--- NOTE | 2018-01-31 01:11 | US ---
EXAM: US Pelvis Complete, Transabdominal US Pelvis, Transvaginal CLINICAL HISTORY: Pain TECHNIQUE: Real-time transabdominal and transvaginal pelvic ultrasound (complete) with image documentation. Transvaginal imaging was used for better evaluation of the endometrium and adnexa. COMPARISON: 01/10/18 FINDINGS: Uterus/cervix: Endometrial complex has normal echotexture and thickness measures about 5 mm. Uterus measures about 8.6 x 4.3 x 4.4 cm. No myometrial mass. Right ovary: Right ovary is obscured by bowel gas. Left ovary: Left ovary is obscured by bowel gas and complex mass. Left adnexal mass measures about 9.5 x 4.8 x 6.5 cm extending to the cul- de-sac. Free fluid: Small amount of free pelvic fluid with questionable echogenic material. Bladder: Unremarkable as visualized. Wall is normal thickness for degree of distention. IMPRESSION: 1. Small amount of free pelvic fluid with questionable echogenic material suggest infectious versus hemorrhagic etiologies 2. Left adnexal mass measures about 9.5 x 4.8 x 6.5 cm extending to the cul-de-sac, larger than on prior study. Differential includes hemorrhagic cyst, endometrioma, and less likely neoplastic or infectious etiologies. Followup is recommended. 3. Ovaries are poorly visualized. Cannot rule out ovarian torsion.
[2018-01-31 01:36] VITALS: BMI 21.2
--- NOTE | 2018-01-31 02:23 | P.HPOB ---
History of Present Illness H&P Date: 01/31/18 Chief Complaint: Worsening left pelvic pain, ectopic This patient is a pleasant 22-year-old 4 para 1 female who has been followed by Dr. Eng for a known left ectopic . Patient was seen by Dr. Eng on January 10 for positive test and pelvic pain. HCG at that time was 2959 and ultrasound showed a 5-6 cm left adnexal mass consistent with an ectopic and some free fluid in the pelvis. Due to the patient 's previous surgery and right salpingectomy patient and Dr. Eng elected to treat her with methotrexate at that time in an effort to save the left fallopian tube. Patient received methotrexate on January [address] Eng has been following her hCG levels since. HCG levels on January 15 was 2750, on was 1738 and January 24 was 845. Repeat hCG level today is 850. Patient states that she's been bleeding for approximately 3 weeks and and in the last 24 hours her bleeding had increased and she is developed worsening left-sided pain that also radiates to her back. Repeat ultrasound here this evening shows a persistent ectopic that is now measuring 6.5 cm x 9.5 cm. There is only a small amount of free pelvic fluid. Hemoglobin is 10.7. Patient's vital signs at this time are stable, however she continues to have pain. Review of Systems Constitutional: Reports as per HPI Genitourinary: Reports as per HPI, Reports abnormal vaginal bleeding, Reports flank pain, Reports pelvic pain, Reports Menstruation: Reports as per HPI Past Medical History Past Medical History: No Reported History Additional Past Medical History / Comment(s): cellulitis of face, tubal History of Any Multi-Drug Resistant Organisms: None Reported Additional Past Surgical History / Comment(s): Patient has had a laparoscopy in July of last year with a right partial salpingectomy and evacuation of hemoperitoneum Past Anesthesia/Blood Transfusion Reactions: No Reported Reaction Past Psychological History: No Psychological Hx Reported Smoking Status: Current every day smoker Past Alcohol Use History: None Reported Past Drug Use History: None Reported - Past Family History Daughter(s) Family Medical History: Seizure Disorder Medications and Allergies Home Medications Medication Instructions Recorded Confirmed Type No Known Home Medications 01/10/18 01/31/18 History Allergies Allergy/AdvReac Type Severity Reaction Status Date / Time No Known Allergies Allergy Verified 01/31/18 01:36 Exam Vital Signs Temp Pulse Pulse Resp BP BP Pulse Ox 01/31/18 01:26 98.3 F 61 18 105/67 98 01/31/18 00:50 63 18 118/80 99 01/30/18 22:40 98 F 81 28 H 126/68 99 Intake and Output 01/30/18 01/30/18 01/31/18 14:59 22:59 06:59 Intake Total 1000 Balance 1000 Intake: Amount of Fluid Infused ( 1000 ml) Other: Weight 54.431 kg 54.431 kg - OBG Physical Exam Abdomen: Patient's abdomen is tender which she localizes to the left lower quadrant and left flank area. There is no rebound or guarding at this time Abdomen: no bruit present, no guarding noted, no hepatomegaly, no splenomegaly, no mass Results Pelvic ultrasound, beta hCG, and CBC as above. Result Diagrams: 01/30/18 23:15 01/30/18 23:15 Abnormal Lab Results - Last 24 Hours (Table) 01/30/18 01/30/18 01/31/18 Range/Units 23:15 23:15 00:40 RBC 3.57 L (3.80-5.40) m/uL Hgb 10.5 L D (11.4-16.0) gm/dL Hct 31.5 L (34.0-46.0) % Glucose 106 H (74-99) mg/dL Urine Protein 1+ H (Negative) Urine Ketones Trace H (Negative) Urine Blood Large H (Negative) Urine RBC 169 H (0-5) /hpf Urine Bacteria Rare H (None) /hpf Urine Mucus Moderate H (None) /hpf Assessment and Plan Assessment: This is a pleasant 22-year-old 4 para 1 female with known left ectopic status post methotrexate treatment on January 10. Patient's beta hCG has stagnated at 850 and repeat ultrasound at this time shows what appears to be an enlarging left ectopic . Patient also has worsening pain. Although the patient is stable at this time, it is my opinion that she most likely will need surgical intervention since she is failed medical treatment. Plan is to admit this patient for close observation, repeat CBC in 4 hours, and patient will discuss with Dr. Eng first thing in the morning whether or not to proceed with surgery. She understands that unfortunately she may end up losing her left fallopian tube as well. Patient has received 1 dose of pain medications but states the discomfort has improved and therefore I'm going to hold further pain medication so I can monitor her better. We will keep her nothing by mouth at this time. (1) , ectopic Current Visit: Yes Status: Acute Code(s): O00.90 - UNSPECIFIED ECTOPIC WITHOUT INTRAUTERINE SNOMED Code(s): 93867040
--- NOTE | 2018-01-31 08:55 | P.PN ---
Subjective Progress Note Date: 01/31/18 Principal diagnosis: Left ectopic , pain This is a 22-year-old female 4 para 1 who presents to the emergency room with pelvic pain early this morning. She does have a known left ectopic and has received methotrexate on January 10. Her beta hCG levels were falling normally up until now. Her last beta hCG level was around 840 approximately a week ago and now is at 850. Her pain this morning is much better and she has been able to ambulate without any dizziness. She is not required any pain medication other than 1 dose in the emergency room. Objective - Vital Signs Vital signs: Vital Signs Temp 98.4 F 01/31/18 07:52 Pulse 63 01/31/18 07:52 Resp 16 01/31/18 07:52 BP 114/69 01/31/18 07:52 Pulse Ox 98 01/31/18 07:52 Intake & Output 01/30/18 01/31/18 01/31/18 18:59 06:59 18:59 Intake Total 1000 Balance 1000 Weight 54.431 kg Intake: Amount of Fluid Infused ( 1000 ml) - Gastrointestinal General gastrointestinal: Present: normal bowel sounds Localized gastrointestinal: tender: LLQ (Mild) - Labs CBC & Chem 7: 01/30/18 23:15 01/30/18 23:15 Labs: Abnormal Lab Results - Last 24 Hours (Table) 01/30/18 01/30/18 01/31/18 Range/Units 23:15 23:15 00:40 RBC 3.57 L (3.80-5.40) m/uL Hgb 10.5 L D (11.4-16.0) gm/dL Hct 31.5 L (34.0-46.0) % Glucose 106 H (74-99) mg/dL Urine Protein 1+ H (Negative) Urine Ketones Trace H (Negative) Urine Blood Large H (Negative) Urine RBC 169 H (0-5) /hpf Urine Bacteria Rare H (None) /hpf Urine Mucus Moderate H (None) /hpf Assessment and Plan Assessment: Left ectopic increasing in size Plan: Will proceed with laparotomy with left salpingectomy and possible left oophorectomy. I did extensively counseled the patient and her regarding possibly trying to save the tube with a salpingostomy however she does not want to go through another ectopic and is well aware that this could happen again if we do save the tube. She is aware that she will no longer be fertile because she does not have any tubes after this procedure. I have discussed the risks, benefits, and alternative therapies for the above- mentioned procedure and for both sedation/anesthesia as well as necessary blood products administration, if indicated, as they pertain to this patient. The patient has indicated her understanding and acceptance of the risks and procedures discussed.
[2018-01-31 09:14] LABS: Basophils % (A) 0 %; Eosinophils # (A) 0.1 k/uL (0-0.7); Eosinophils % (A) 2 %; HCT 29.8 % (34.0-46.0); HGB 9.8 gm/dL (11.4-16.0); Lymphocytes # (A) 1.5 k/uL (1.0-4.8); Lymphocytes % (A) 23 %; MCH 29.6 pg (25.0-35.0); MCHC 32.9 g/dL (31.0-37.0); MCV 89.9 fL (80.0-100.0); Mean Platelet Volume 6.8; Monocytes # (A) 0.3 k/uL (0-1.0); Monocytes % (A) 5 %; Neutrophils # (A) 4.4 k/uL (1.3-7.7); Neutrophils % (A) 68 %; Platelet Count 218 k/uL (150-450); RBC 3.32 m/uL (3.80-5.40); RDW 13.3 % (11.5-15.5); WBC 6.5 k/uL (3.8-10.6)
[2018-01-31] MEDS ORDERED: IV FLUID CONTINUATION 1,000 ML IV ONE (11:31)
[2018-01-31] MEDS ORDERED: MIDAZOLAM 2 MG/2 ML VIAL IV ONE (11:50)
[2018-01-31] MEDS ORDERED: DEXAMETHASONE SOD PHOS (MDV) 100 MG/10 ML VIAL IV ONE (11:51)
[2018-01-31] MEDS: ONDANSETRON 4 MG/2 ML VIAL IVP PRN (11:51)
[2018-01-31] MEDS ORDERED: fentaNYL (PF) 50 MCG/ML 2 ML AMP IV ONE (12:03)
[2018-01-31] MEDS ORDERED: ceFAZolin 2,000 MG in DEXTROSE/WATER 1 50ML.BAG IVPB STA (12:03)
[2018-01-31] MEDS ORDERED: ceFAZolin IN SWFI 2 GM/20 ML SYRINGE IVP STA (12:07)
[2018-01-31] MEDS ORDERED: SUCCINYLCHOLINE CHLORIDE 100 MG/5 ML SYR IV ONE (12:58)
[2018-01-31] MEDS ORDERED: MIDAZOLAM 2 MG/2 ML VIAL ONE (12:58)
[2018-01-31] MEDS ORDERED: GLYCOPYRROLATE 0.2 MG/ML 2 ML VIAL ONE (12:58)
[2018-01-31] MEDS ORDERED: fentaNYL (PF) 50 MCG/ML 2 ML AMP ONE (12:58)
[2018-01-31] MEDS ORDERED: LIDOCAINE 1% INJ 10MG/ML (20 ML MDV) ONE (12:58)
[2018-01-31] MEDS ORDERED: NEOSTIGMINE 1 MG/ML 10 ML VIAL ONE (12:58)
[2018-01-31] MEDS ORDERED: ROCURONIUM BROMIDE 10 MG/ML 10 ML VIAL IV ONE (12:58)
[2018-01-31] MEDS ORDERED: PROPOFOL 10 MG/ML 20 ML VIAL IV ONE (12:58)
[2018-01-31] MEDS ORDERED: diphenhydrAMINE 50 MG/ML 1 ML VIAL IVP PRN ×2 (13:10→14:36)
[2018-01-31] MEDS ORDERED: NALBUPHINE 10 MG/ML VIAL (10ML MDV) IV PRN (13:10)
[2018-01-31] MEDS ORDERED: ROPIVACAINE 300 MG, HYDROMORPHONE (PF) 5 MG in SODIUM CHLORIDE 0.9% 190 ML EPIDURAL PRN (13:10)
[2018-01-31] MEDS ORDERED: LACTATED RINGERS 1,000 ML IV ONE (13:18)
[2018-01-31] MEDS ORDERED: CELLULOSE,OXIDIZED 1 EACH EACH MISCELLANE ONE (13:32)
--- NOTE | 2018-01-31 13:52 | P.OP ---
Date of Procedure: 01/31/18 Preoperative Diagnosis: Left ectopic Postoperative Diagnosis: same Procedure(s) Performed: Exploratory laparotomy with left salpingectomy Anesthesia: ETIENNE Surgeon: Brenda Eng Seed Trucker #1: Lisseth Almaraz Estimated Blood Loss (ml): 100 Pathology: other (Left fallopian tube with ectopic) Condition: stable Disposition: floor Indications for Procedure: This is a 22-year-old female 4 para 1 with a known left ectopic who presented to emergency room with increasing pain and bleeding. Her beta hCG level was around 850 and her left adnexa mass had increased to 9.5 cm. She was hemodynamically stable. She consented to a left salpingectomy and understands that this is a permanent procedure and she will no longer be able to have children naturally. I have discussed the risks, benefits, and alternative therapies for the above- mentioned procedure and for both sedation/anesthesia as well as necessary blood products administration, if indicated, as they pertain to this patient. The patient has indicated her understanding and acceptance of the risks and procedures discussed. Operative Findings: The left fallopian tube is very dilated and adherent to the posterior cul-de- sac and her colon. A small to moderate amount of dark red blood clots were suctioned out of the posterior cul-de-sac. Right tube had previously been removed. Both ovaries appeared normal. Description of Procedure: The patient was taken to the operating room where she is placed in the dorsal supine position. general anesthesia is given. She had previously been given an epidural for postoperative pain in preop. She is prepped and draped in the normal sterile fashion including a Granda catheter insertion.a Pfannenstiel skin incision was made with a scalpel. A second knife was used to carry the incision down to the underlying layer of fascia. The fascia was nicked in the midline and extended laterally bilaterally with Calvin scissors. The superior aspect of the fascial incision was grasped with Sara clamps, elevated, and dissected off the underlying rectus muscle in the midline with Calvin scissors. The inferior aspect of the fascial incision was grasped with Sara clamps, elevated off the underlying rectus muscle and then dissected off the muscle with Calvin scissors. Next the peritoneum was identified with 2 hemostats and entered sharply with the scalpel. The peritoneal layer was extended superiorly and in fairly with Metzenbaum scissors with good visualization of underlying structures. A small Selena retractor was placed. Bladder blade was inserted. Suction was used to suction out any of the blood clot in the posterior cul-de- sac. A small to moderate amount of dark red blood was removed. Next the uterus was elevated through the incision.the left fallopian tube was carefully dissected off the posterior cul-de-sac with gentle manual dissection with my fingers. Once the tube was elevated to where the ovary could be visualized, the fallopian tube was clamped with a Rama clamp in multiple stages. This was cut with Calvin scissors and sutured with 0 Vicryl suture in Rama transfixion stitches removing the entire tube. Next copious irrigation was carried out with warm saline. Good hemostasis was noted. A piece of Interceed was placed behind the uterus to help with adhesions. packing was removed. All other instrument are removed from the abdomen. All sponge and needle counts were correct. Next the peritoneal layer was closed with 0 Vicryl suture in a running fashion.next the muscle layer was reapproximated with 0 Vicryl suture in interrupted fashion. Next the fascial layer was closed with 0 PDS suture with 2 sutures meeting in the midline and the knots buried on either side and in the midline. Next the subcutaneous tissue was closed with 3-0 Vicryl suture in a running fashion. Next the skin was closed with benito. All sponge and needle counts are correct and the patient is taken to recovery room in stable condition.
[2018-01-31] MEDS ORDERED: KETOROLAC 30 MG/ML 1 ML VIAL IVP PRN (14:36)
[2018-01-31] MEDS ORDERED: IBUPROFEN 600 MG TAB PO PRN (14:36)
[2018-01-31] MEDS ORDERED: METOCLOPRAMIDE 5 MG/ML 2 ML VIAL IVP PRN (14:36)
[2018-01-31] MEDS ORDERED: SIMETHICONE 80 MG CHEWABLE PO PRN (14:36)
[2018-01-31] MEDS ORDERED: HYDROcodone/APAP 5-325MG 1 EACH TAB PO PRN (14:36)
[2018-01-31] MEDS: SENNOSIDES-DOCUSATE SODIUM 1 EACH TAB PO SCH (19:48)
[2018-02-01] MEDS: ONDANSETRON 4 MG/2 ML VIAL IVP PRN (01:08)
[2018-02-01] MEDS: HYDROcodone/APAP 5-325MG 1 EACH TAB PO PRN ×2 (05:12→12:55)
--- NOTE | 2018-02-01 07:12 | P.PN ---
Progress Note - Text Progress Note Date: 02/01/18 The patient had thoracic epidural catheter placement for postoperative pain control. Postop day #( 1 ), status post exp lap . The patient is doing well. The pain is well controlled with a combination of the thoracic epidural and oral [place]. The patient feels mild numbness in the left thigh but she denies any weakness in the lower extremities or any back pain. We will continue the epidural infusion of local anesthetics as per protocol.
[2018-02-01 07:21] VITALS: BP 109/61; PULSE 81; RESP 16; TEMP 97.9
[2018-02-01 07:56] LABS: Basophils % (A) 0 %; Eosinophils % (A) 0 %; HCT 30.2 % (34.0-46.0); Lymphocytes # (A) 1.9 k/uL (1.0-4.8); Lymphocytes % (A) 19 %; MCH 29.8 pg (25.0-35.0); MCHC 33.1 g/dL (31.0-37.0); MCV 90.2 fL (80.0-100.0); Mean Platelet Volume 7.3; Monocytes # (A) 0.6 k/uL (0-1.0); Monocytes % (A) 6 %; Neutrophils # (A) 7.1 k/uL (1.3-7.7); Neutrophils % (A) 73 %; Platelet Count 234 k/uL (150-450); RBC 3.34 m/uL (3.80-5.40); RDW 13.3 % (11.5-15.5); WBC 9.8 k/uL (3.8-10.6)
[2018-02-01] MEDS: SENNOSIDES-DOCUSATE SODIUM 1 EACH TAB PO SCH (09:08)
--- NOTE | 2018-02-01 12:56 | P.DS ---
Providers Date of admission: 01/31/18 00:32 Expected date of discharge: 02/01/18 Attending physician: Brenda Eng Primary care physician: Stated None Hospital Course: This is a 22-year-old female 4 para 1 who presented with abdominal pain with known ectopic . She underwent a exploratory laparotomy with left salpingectomy on 01/31/2018. Her postoperative course has been uncomplicated. She did have epidural for pain control postoperatively along with [place]. The epidural did fall out this morning. She has been ambulating. She is tolerating regular diet. She is ready to go home. Vital signs are stable. Abdomen is soft with positive bowel sounds 4. Incision is clean dry and intact. Extremities show negative Hom[place]. Granda catheter is still in place even though it was ordered to be removed this morning. Impression is status post exploratory laparotomy with left salpingectomy postoperative day #1. Plan is to discharge home today. She will be given a prescription for nor co-5/325 # 18. She did sign opioids start taking form and was given information about opioids. She denies any controlled substance use. She will also be given a prescription for ibuprofen 600 mg every 6 hours as needed for pain. Routine postoperative instructions are given. She is advised to follow up in the office on Monday for staple removal and postoperative check. She will be off of school until Monday. Procedures: Exploratory laparotomy with left salpingectomy on 01/31/2018 Patient Condition at Discharge: Stable Plan - Discharge Summary Discharge Rx Participant: Yes New Discharge Prescriptions: No Action No Known Home Medications Discharge Medication List No Known Home Medications 01/10/18 [History] Follow up Appointment(s)/Referral(s): None,Stated [Primary Care Provider] - 1-2 days Brenda Eng DO [Doctor of Osteopathic Medicine] - 02/05/18 (Please call office for appointment on Monday) Activity/Diet/Wound Care/Special Instructions: Activity as tolerated. Diet as tolerated. May shower, but no tub baths for 1 week. No intercourse for 1 week. May return to school on Monday, February 06. Discharge Disposition: HOME SELF-CARE
[2018-02-01 17:00] LABS: N. gonorrhoeae,PCR Negative (Neg,Equiv); Neisseria Source Vagina
[2018-02-01 17:16] LABS: C. trachomatis,PCR Negative (Neg,Equiv); Chlamydia trachomatis Source Vagina
== END 2018-02-01 16:07 | disposition home or self-care (01) | DRG 819 ==
LOC: EC 22:38 → 6PED 01-31 00:32 → 4SSUR 01-31 14:29
PROVIDERS: ADMIT Obstetrics & Gynecology; ATTEND Obstetrics & Gynecology
PROC: 10T20ZZ Resection of Products of Conception, Ectopic, Open Approach (ICD-10-PCS; 2018-01-31)
PROC: 0UT60ZZ Resection of Left Fallopian Tube, Open Approach (ICD-10-PCS; principal; 2018-01-31 08:30)
DX: O00.102 Left tubal pregnancy without intrauterine pregnancy (principal); F17.210 Nicotine dependence, cigarettes, uncomplicated; Z82.0 Family history of epilepsy and other diseases of the nervous system
CPT/HCPCS: 36415; 76830; 80053; 81001; 84702; 85025; 85610; 85730; 86850; 86870; 86880; 86900; 86901; 87070; 87205; 87491; 87591; 87808; 96361; 96374; 96375; 99285

== ENCOUNTER → 2023-10-18 | Outpatient (CLI) | payer OTHER ==
--- NOTE | 2023-10-18 15:39 | US ---
EXAMINATION TYPE: US transvaginal DATE OF EXAM: 10/18/2023 COMPARISON: NONE CLINICAL INDICATION: Female, 28 years old with history of N94.10 PAIN WITH INTERCOURSE; pain TECHNIQUE: Transvaginal (TV). EXAM MEASUREMENTS: Uterus: 8.4 x 4.6 x 5.7 cm Endometrial Stripe: .9 cm Right Ovary: 5.4 x 2.8 x 2.6 cm Left Ovary: 3.6 x 2.7 x 1.8 cm 1. Uterus: Anteverted wnl 2. Endometrium: wnl 3. Right Ovary: Hypoechoic area seen2.4 x 2.0 x 2.0 cm 4. Left Ovary: wnl 5. Bilateral Adnexa: wnl 6. Posterior cul-de-sac: wnl IMPRESSION: Probable functional right ovarian cyst. This could be confirmed with follow-up study in 6 weeks.
== END | disposition home or self-care (01) ==
LOC: RADUSWWP 15:09
PROVIDERS: ATTEND Family Medicine
DX: N94.10 Unspecified dyspareunia (principal)
CPT/HCPCS: 76830

== ENCOUNTER → 2023-11-30 | Outpatient (CLI) | payer OTHER ==
--- NOTE | 2023-12-01 11:24 | US ---
EXAMINATION TYPE: US transvaginal DATE OF EXAM: 11/30/2023 COMPARISON: Multiple, most recent = 10/18/2023 CLINICAL INDICATION: Female, 28 years old with history of R93.89 ABN US; TECHNIQUE: Transabdominal sonographic images of the pelvis were acquired. Transvaginal sonographic i mages were medically necessary to better assess the anatomy. Date of LMP: 10/16/2023 EXAM MEASUREMENTS: Uterus: 8.7 x 4.4 x 5.9 cm Endometrial Stripe: 0.9 cm Right Ovary: 3.9 x 3.3 x 2.7 cm Left Ovary: 6.6 x 5.5 x 5.7 cm 1. Uterus: Anteverted. Multiple calcifications and nabothian cysts within cervix. 2. Endometrium: wnl 3. Right Ovary: Normal follicular change. 4. Left Ovary: Hemorrhagic cyst = 5.8 x 4.5 x 5.0 cm characterized by large cyst with internal reti cular densities. 5. Bilateral Adnexa: wnl 6. Posterior cul-de-sac: Trace fluid seen IMPRESSION: 1. A 5.8 cm hemorrhagic cyst of the left ovary. Follow-up in 6-8 weeks to ensure resolution. 2. Normal follicular change in the right ovary.
== END | disposition home or self-care (01) ==
LOC: RADUSWWP 16:34
PROVIDERS: ATTEND Family Medicine
DX: N83.202 Unspecified ovarian cyst, left side (principal); R93.89 Abnormal findings on diagnostic imaging of other specified body structures
CPT/HCPCS: 76830